=== PATIENT | female | born 1960 | race Hispanic/Latino ===

== ENCOUNTER → 2022-06-08 | Outpatient (CLI) | payer OTHER | END | disposition home or self-care (01) | LOC: RAH 07:50 | PROVIDERS: ATTEND Family Medicine | DX: S46.011D Strain of muscle(s) and tendon(s) of the rotator cuff of right shoulder, subsequent encounter (principal); S46.911D Strain of unspecified muscle, fascia and tendon at shoulder and upper arm level, right arm, subsequent encounter; S43.401D Unspecified sprain of right shoulder joint, subsequent encounter; S40.011D Contusion of right shoulder, subsequent encounter; M19.011 Primary osteoarthritis, right shoulder; M19.012 Primary osteoarthritis, left shoulder; M25.712 Osteophyte, left shoulder; M25.711 Osteophyte, right shoulder; X58.XXXD Exposure to other specified factors, subsequent encounter | CPT/HCPCS: 73221 ==